=== PATIENT | male | born 1975 | race Hispanic/Latino ===

== ENCOUNTER 2025-07-06 09:01 | Day surgery (SDC) | payer MEDICAID ==
[2025-07-06] VITALS (10 sets, daily range): BP systolic 90–116; BP diastolic 42–63; PULSE 58–81; RESP 15–19; TEMP 97–97.6
[~2025-07-06] VITALS: Ht 139.7 cm; Wt 70.3 kg
[2025-07-06] MEDS: 0.9%NACL 1000ML 1,000 ML IV ONE (06:14)
[2025-07-06] MEDS ORDERED: 0.9%NACL 1000ML 1,000 ML IV ONE (10:15)
[2025-07-06] MEDS ORDERED: AZIT250T9 PEG (10:43)
[2025-07-06] MEDS ORDERED: LACT-441 PEG (10:43)
[2025-07-06] MEDS ORDERED: ASPI-1005 PEG (10:43)
[2025-07-06] MEDS ORDERED: VITA-348 PEG (10:43)
[2025-07-06] MEDS ORDERED: ALBU2.5V2 NEB (10:43)
[2025-07-06] MEDS ORDERED: [UNRECOGNIZED DRUG - CODE] PEG (10:43)
[2025-07-06] MEDS ORDERED: VALPROIC ACID PEG (10:43)
[2025-07-06] MEDS ORDERED: CETI-261 PEG (10:43)
[2025-07-06] MEDS ORDERED: BACL10TA PEG (10:43)
[2025-07-06] MEDS ORDERED: CLON0.5T23 PEG (10:43)
[2025-07-06] MEDS ORDERED: VIMPAT 10MG/ML PEG (10:43)
[2025-07-06] MEDS ORDERED: LAMO200T51 PEG (10:43)
[2025-07-06] MEDS ORDERED: LIDOCAINE HCL 400MG/20ML VIAL ONE (13:47)
== END 2025-07-06 15:30 | disposition home or self-care (01) ==
LOC: ENDO 09:01 → DAH 09:01 → ENDO 15:30
PROVIDERS: ATTEND Internal Medicine
DX: K94.23 Gastrostomy malfunction (principal); R63.30 Feeding difficulties, unspecified; G43.909 Migraine, unspecified, not intractable, without status migrainosus; Z86.0100 Personal history of colon polyps, unspecified; R56.9 Unspecified convulsions; G80.9 Cerebral palsy, unspecified; Z79.899 Other long term (current) drug therapy
CPT/HCPCS: 43241; J3490; J7030 ×3; J2704 ×3; A4620; A4215; A4223; A4222; A4606; 43246